=== PATIENT | male | born 1990 | race African-American/Black ===

== ENCOUNTER 2024-05-18 01:31 | Emergency (ER) | payer MEDICAID, OTHER | END 2024-05-18 02:07 | disposition left against medical advice (07) | LOC: ER 01:40 | DX: Z20.2 Contact with and (suspected) exposure to infections with a predominantly sexual mode of transmission (principal); Z53.21 Procedure and treatment not carried out due to patient leaving prior to being seen by health care provider ==

== ENCOUNTER 2024-08-04 06:49 | Emergency (ER) | payer OTHER | END 2024-08-04 08:24 | disposition left against medical advice (07) | LOC: ER 06:57 | DX: R53.1 Weakness (principal); Z53.21 Procedure and treatment not carried out due to patient leaving prior to being seen by health care provider ==

== ENCOUNTER 2025-05-13 01:58 | Emergency (ER) | payer OTHER ==
[~2025-05-13] VITALS: Ht 172.7 cm; Wt 65.8 kg
[~2025-05-13 01:58] MED LIST: IBUP-1490 PO
[2025-05-13] MEDS ORDERED: LIDOCAINE 5% (PATCH) 1 EA PATCH TP ONE (02:40)
[2025-05-13] MEDS ORDERED: KETOROLAC TROMETHAMINE INJ 30 MG/ML VIAL ONE (02:41)
[2025-05-13] MEDS ORDERED: BACLOFEN (10 MG) 10 MG TABLET ONE (02:41)
[2025-05-13] MEDS: LIDOCAINE 5% (PATCH) 1 EA PATCH TP SCH (02:49)
[2025-05-13] MEDS: BACLOFEN (10 MG) 10 MG TABLET PO ONE (02:49)
[2025-05-13] MEDS: KETOROLAC TROMETHAMINE INJ 30 MG/ML VIAL IM ONE (02:49)
[2025-05-13] MEDS ORDERED: KETO10TA2 PO (03:46)
[2025-05-13] MEDS ORDERED: LIDO30AD10 TP (03:46)
[2025-05-13] MEDS ORDERED: CYCL5TAB PO (03:46)
[2025-05-13 04:06] VITALS: BP 122/75; TEMP 97.7; O2SAT 100
== END 2025-05-13 04:13 | disposition home or self-care (01) ==
LOC: ER 01:59
DX: S20.211A Contusion of right front wall of thorax, initial encounter (principal); G89.29 Other chronic pain; F17.200 Nicotine dependence, unspecified, uncomplicated; Z79.899 Other long term (current) drug therapy; R00.2 Palpitations; W18.39XA Other fall on same level, initial encounter; Y93.89 Activity, other specified; Y92.89 Other specified places as the place of occurrence of the external cause; Y99.8 Other external cause status
CPT/HCPCS: 99284; 96372; 72100; 71100; J1885